=== PATIENT | male | born 1995 | race African-American/Black ===

== ENCOUNTER 2024-08-05 23:36 | Emergency (ER) | payer MEDICAID ==
[~2024-08-05] VITALS: Ht 180.3 cm; Wt 91.0 kg
[2024-08-06 00:16] VITALS: O2SAT 100
[2024-08-06] MEDS ORDERED: TOPUD MT (01:54)
[2024-08-06] MEDS ORDERED: IBUP-2029 MT (01:54)
[2024-08-06 02:52] VITALS: BP 134/77; PULSE 64; RESP 18; TEMP 37.3; O2SAT 100
== END 2024-08-06 02:53 | disposition home or self-care (01) ==
LOC: ER 23:36
DX: J11.1 Influenza due to unidentified influenza virus with other respiratory manifestations (principal); Z79.899 Other long term (current) drug therapy
CPT/HCPCS: 99282